=== PATIENT | male | born 1960 | race Caucasian/White ===

== ENCOUNTER 2016-03-20 05:50 | Inpatient (IN) | payer OTHER ==
[~2016-03-20] VITALS: Ht 188 cm; Wt 113.4 kg
[2016-03-20] VITALS (7 sets, daily range): BP systolic 126–156; BP diastolic 74–86
[~2016-03-20 05:50] MED LIST: AMLO10TA PO; ASPI81TA85 PO; BENA40TA2 PO; HYDR25TAB PO; NEXI1CAP4 PO
[2016-03-20] MEDS ORDERED: MANNITOL 25% 12.5 GM/50 ML VIAL (J2150) As Ordered ONE ×2 (07:13→11:44)
[2016-03-20] MEDS ORDERED: FLUORESCEIN 10% (100MG/ML) 5 ML VIAL As Ordered ONE (07:15)
[2016-03-20] MEDS ORDERED: ePHEDrine SULFATE 25 MG/5 ML(5MG/ML) SYRINGE As Ordered ONE (08:17)
[2016-03-20] MEDS ORDERED: dexameTHASONE 4 MG/ML 1ML VIAL (J1100) As Ordered ONE (08:37)
[2016-03-20] MEDS ORDERED: PROPOFOL 200 MG/20 ML VIAL As Ordered ONE ×2 (08:37→12:07)
[2016-03-20] MEDS ORDERED: HYDROmorphone HCL 2 MG/ML 1ML VIAL (J1170) As Ordered ONE (08:37)
[2016-03-20] MEDS ORDERED: MIDAZOLAM INJ 2 MG/2 ML VIAL (J2250) As Ordered ONE (08:37)
[2016-03-20] MEDS ORDERED: LIDOCAINE 2% INJ 100 MG/5 ML SDV (FOR ANES.) As Ordered ONE (08:37)
[2016-03-20] MEDS ORDERED: ROCURONIUM BROMIDE 50 MG/5 ML VIAL As Ordered ONE ×3 (08:37→12:29)
[2016-03-20] MEDS ORDERED: fentaNYL 250 MCG/5 ML INJECTION (J3010) As Ordered ONE (08:37)
[2016-03-20] MEDS ORDERED: ONDANSETRON 4MG/2ML VIAL (J2405) As Ordered ONE ×2 (08:37→12:29)
[2016-03-20] MEDS ORDERED: GLYCOPYRROLATE INJ 0.2 MG/ML 2 ML VIAL As Ordered ONE (08:45)
[2016-03-20] MEDS ORDERED: MANNITOL 25% 12.5 GM/50 ML VIAL (J2150) XX ONE (10:24)
[2016-03-20] MEDS ORDERED: fentaNYL 100 MCG/2 ML INJECTION (J3010) As Ordered ONE (13:21)
[2016-03-20] MEDS: fentaNYL 100 MCG/2 ML INJECTION (J3010) IV PRN ×2 (13:24→13:34)
[2016-03-20 13:34] LABS: MEAN CORPUSCULAR HEMOGLOBIN 32.6 pg (27.0-33.0); MEAN CORPUSCULAR HGB CONC 35.1 g/dl (32.0-36.5); MEAN CORPUSCULAR VOLUME 92.7 fl (80.0-96.0); RED CELL DISTRIBUTION WIDTH 11.9 % (11.5-14.5); WHITE BLOOD COUNT 10.3 K/mm3 (4.0-10.0)
[2016-03-20] MEDS ORDERED: ALBUTEROL SULFATE 2.5 MG/0.5 ML INH NEB SOLN As Ordered ONE (13:48)
[2016-03-20 14:12] LABS: ANION GAP 10 MEQ/L (8-16); BLOOD UREA NITROGEN 16 MG/DL (7-18); CALCIUM LEVEL 8.7 MG/DL (8.5-10.1); CARBON DIOXIDE LEVEL 22 MEQ/L (21-32); CHLORIDE LEVEL 104 MEQ/L (98-107); CREATININE FOR GFR 1.27 MG/DL (0.70-1.30); GLOMERULAR FILTRATION RATE > 60.0 (>56); GLUCOSE, FASTING 139 MG/DL (70-105); POTASSIUM SERUM 4.2 MEQ/L (3.5-5.1); SODIUM LEVEL 136 MEQ/L (136-145)
[2016-03-20] MEDS ORDERED: PERCOCET 5MG/325MG TAB PO PRN (14:15)
[2016-03-20] MEDS ORDERED: LR 1,000 ML IV SCH (14:15)
[2016-03-20] MEDS ORDERED: ONDANSETRON 4MG/2ML VIAL (J2405) IV PRN ×2 (14:15→15:00)
[2016-03-20] MEDS ORDERED: HYDROmorphone HCL 1 MG/ML SYRINGE (J1170) IV PRN (14:15)
[2016-03-20] MEDS ORDERED: ALBUTEROL SULFATE 2.5 MG/0.5 ML INH NEB SOLN NEB SCH (14:15)
[2016-03-20] MEDS ORDERED: ADVAIR DISKUS 250/50 INH PWD INH PRN (15:15)
[2016-03-20] MEDS ORDERED: ALBUTEROL 90 MCG/ACT 8GM HFA INHALER INH PRN (15:15)
[2016-03-20] MEDS: MORPHINE 4 MG/ML 1ML SYRINGE IV PRN ×2 (15:16→18:33)
[2016-03-20] MEDS: ACETAMINOPHEN 650MG ER TAB (TYLENOL ARTHRITIS) PO SCH ×2 (16:23→22:49)
[2016-03-20] MEDS: hydroCHLOROthiazide 25 MG TAB PO SCH (16:24)
[2016-03-20] MEDS: amLODIPine 10 MG TAB PO SCH (16:24)
[2016-03-20] MEDS: KCL 20MEQ IN D5/0.45NS 1000ML 1,000 ML IV SCH (16:26)
[2016-03-20] MEDS: CIPROFLOXACIN 500 MG TAB PO SCH (17:35)
[2016-03-20] MEDS: oxyCODONE 5MG TAB PO PRN (21:01)
--- NOTE | 2016-03-21 00:29 | RO ---
DATE OF PROCEDURE: 03/20/2016 PREPROCEDURE DIAGNOSIS: Right renal neoplasm. POSTPROCEDURE DIAGNOSIS: Right renal neoplasm. PROCEDURE: Robotic-assisted right partial nephrectomy. SURGEON: Reji Morgan MD PRODUCTION CONTROL MANAGER: Malu Talavera ANESTHESIA: General. COMPLICATIONS: None. ESTIMATED BLOOD LOSS: 100 mL. WARM ISCHEMIA TIME: 26 minutes. HISTORY OF THE PRESENT ILLNESS: This is a 55-year-old male patient that has a right renal neoplasm about 3 cm in diameter in the upper pole, posterior part. 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 He has consented for a robotic-assisted right partial nephrectomy. DESCRIPTION OF PROCEDURE: In a patient under general anesthesia in decubital lateral position with the left side down and the right side up, we prepped and draped the patient. We prepped the complete abdomen and right flank. We placed a Galan catheter to drain the bladder, a 16-Burmese Galan catheter, inflated the balloon to 10 mL. We placed an orogastric tube to drain the gastric content. We then proceeded to do a transverse incision about 2 cm in length supraumbilically about 4 cm above the umbilicus and 2 cm more to the lateral. Through this incision, we opened up peritoneal cavity and placed a 12 mm balloon trocar. We inflated the balloon to 40 mL and through this trocar, we insufflated the abdomen with CO2 at a maximum pressure of 15 at high flow. We then proceeded to place a 30 degree down 10 mm robotic camera, an optic. With a handheld robotic camera surgical assistant certified, we placed the other trocars, 8 mm metallic trocar subcostally 2 cm away from the subcostal margin in the midclavicular line, in the midline and epigastrium a 5 mm VersaStep to retract the liver with an Allis clamp attached to the lateral abdominal wall and below the umbilicus, about 6 cm away from umbilicus in the midline, a 12 mm VersaStep. We placed another 8 mm metallic trocar at the level of the right iliac fossa in the midclavicular line and 7 cm away from this one in anterior axillary line, we placed a third arm, 8 mm metallic trocar. We then proceeded to use in the third arm a ProGrasp, in the left arm in the lower iliac fossa monopolar scissors, in the right arm monopolar PK. We then docked the robot. We proceeded to actually dissect the line of Toldt and retract the ascending colon toward the midline. We then proceeded to identify the lower pole of the kidney and defatted the kidney completely out of perirenal fat, mobilizing the kidney out lower pole and posterior part of the kidney as well as lateral attachments. We then proceeded to identify the lower polar artery and ureter. With the third arm, we retracted the lower pole and dissected the lower pole artery. We identified the renal vein, dissected the renal vein. We then proceeded to dissect the upper pole. We identified the upper pole artery, and we also dissected the upper pole. We then flipped the kidney completely toward the midline, and we could actually see the posterior 3 cm mass coming off from the upper pole. At that moment in time, we passed Mannitol 12.5 grams IV and then introduced an ultrasound PK intraoperative ultrasound to identify the vessels around the mass and the mass. It was a solid cystic mass. At that moment in time, we actually decided to pass 2 mL of indocyanine green for a total of 5 grams of indocyanine IV. We could visualize that when we clamped the upper pole, we could actually only reduce the perfusion of the upper pole but not the posterior pole. For this reason, we decided to actually put bulldog clamps in both arteries and none in the renal vein. At that moment in time with scissors and bipolar PK, we resected the upper pole as well as the upper pole posterior renal neoplasm. We then proceeded to actually use Vicryl #3-0 to do a running stitch to actually secure hemostasis and then a 2-0 V-Loc to actually run and approximate the parenchyma to parenchyma of the upper pole. Once the anastomosis was done, we took out the bulldogs. We could see there was no bleeding vessels. At that moment in time, we placed Siobhan on top of the renal fossa resection as well as the posterior part of the psoas muscle, posterior part of the upper pole area. We then proceeded to secure hemostasis. There were no bleeding vessels. We reduced the pneumoperitoneum to 10 and there were no bleeding vessels. At that moment in time, we extracted all needles and the bulldogs. We then proceeded to undock by pulling out the third arm and passing a TAMIKA drain to the posterior part of the kidney. We undocked the third arm. We took all the instruments out and before this, we placed the mass into an Endo Catch bag and the perirenal fat also into an Endo Catch bag 10 mm in size. We then proceeded to undock the robot and took all the trocars out. We extracted the mass through the optic incision site. This was sent as two specimens, (1) the perirenal fat and (2) the right renal neoplasm. We then proceeded to actually count the needles. There was one needle missing. For this reason, we actually replaced the optic port and two metallic trocars and docked the robot again. We proceeded to actually inspect the cavity, and we could see that one of the 3-0 V-Locs was still attached in the renal raphe. For this reason, we cut the needle and then extracted the needle out and the count was complete. At that moment in time, we verified that hemostasis was very well performed. There were no bleeding vessels. We took all the instruments out, undocked the robot and took all the trocars out and then started closing the trocar incision sites. We closed the optic port incision site in two layers with a #0 Prolene, separate stitches and the second layer with Vicryl #0 and a UR6 needle in separate stitches also. We then closed the port sites with subcuticular stitches, #4-0 Monocryls, and nylon #3-0 to actually stitch the drain to the skin. We then covered the wound with Steri-Strips, 2 x 2's and Tegaderm. PLAN: The patient will pass to recovery and then to the floor. Once he is taking a regular diet and ambulating very well, he will be discharged home. There were no complications during surgery.
[2016-03-21] MEDS: KCL 20MEQ IN D5/0.45NS 1000ML 1,000 ML IV SCH ×3 (01:03→15:00)
[2016-03-21 02:00] VITALS: BP 129/83
[2016-03-21] MEDS: CIPROFLOXACIN 500 MG TAB PO SCH ×2 (05:55→18:00)
[2016-03-21] MEDS: ACETAMINOPHEN 650MG ER TAB (TYLENOL ARTHRITIS) PO SCH ×3 (05:55→20:50)
[2016-03-21 06:00] VITALS: BP 138/88
[2016-03-21 06:52] LABS: MEAN CORPUSCULAR HEMOGLOBIN 31.7 pg (27.0-33.0); MEAN CORPUSCULAR HGB CONC 33.5 g/dl (32.0-36.5); MEAN CORPUSCULAR VOLUME 94.7 fl (80.0-96.0); RED CELL DISTRIBUTION WIDTH 12.5 % (11.5-14.5); WHITE BLOOD COUNT 12.1 K/mm3 (4.0-10.0)
[2016-03-21 06:55] LABS: ANION GAP 7 MEQ/L (8-16); BLOOD UREA NITROGEN 13 MG/DL (7-18); CALCIUM LEVEL 8.9 MG/DL (8.5-10.1); CARBON DIOXIDE LEVEL 29 MEQ/L (21-32); CHLORIDE LEVEL 104 MEQ/L (98-107); CREATININE FOR GFR 1.24 MG/DL (0.70-1.30); GLOMERULAR FILTRATION RATE > 60.0 (>56); GLUCOSE, FASTING 129 MG/DL (70-105); POTASSIUM SERUM 4.3 MEQ/L (3.5-5.1); SODIUM LEVEL 140 MEQ/L (136-145)
[2016-03-21] MEDS: PANTOPRAZOLE 40MG INJ (PROTONIX) (C9113) IV SCH (07:55)
[2016-03-21] MEDS: oxyCODONE 5MG TAB PO PRN ×4 (07:55→20:51)
[2016-03-21] MEDS: amLODIPine 10 MG TAB PO SCH (07:55)
[2016-03-21] MEDS: hydroCHLOROthiazide 25 MG TAB PO SCH (07:56)
[2016-03-21 10:00] VITALS: BP 136/80
[2016-03-21 14:00] VITALS: BP 142/84
[2016-03-21 17:50] LABS: SOURCE, BODY FLUID CREATININE OTHER
[2016-03-21 22:00] VITALS: BP 170/82
[2016-03-22] MEDS: KCL 20MEQ IN D5/0.45NS 1000ML 1,000 ML IV SCH (02:39)
[2016-03-22] MEDS: oxyCODONE 5MG TAB PO PRN ×3 (03:28→11:58)
[2016-03-22 06:00] VITALS: BP 155/63
[2016-03-22] MEDS: ACETAMINOPHEN 650MG ER TAB (TYLENOL ARTHRITIS) PO SCH (06:42)
[2016-03-22] MEDS: CIPROFLOXACIN 500 MG TAB PO SCH (06:42)
[2016-03-22] MEDS: hydroCHLOROthiazide 25 MG TAB PO SCH (08:06)
[2016-03-22 08:07] VITALS: BP 153/96
[2016-03-22] MEDS: amLODIPine 10 MG TAB PO SCH (08:07)
[2016-03-22] MEDS: PANTOPRAZOLE 40MG INJ (PROTONIX) (C9113) IV SCH (08:08)
[2016-03-22] MEDS ORDERED: OXYC10TA12 PO (10:26)
[2016-03-22] MEDS ORDERED: CIPR500T3 PO (10:26)
--- NOTE | 2016-03-22 20:49 | DSES ---
DATE OF ADMISSION: 03/20/2016 DATE OF DISCHARGE: 03/22/2016 PREOPERATIVE DIAGNOSIS: Right renal neoplasm. POSTOPERATIVE DIAGNOSIS: Right renal calcified cyst. SURGERY PERFORMED: Robotic-assisted right partial nephrectomy. ADMITTING DIAGNOSIS: Right renal neoplasm. DISCHARGE DIAGNOSIS: Right renal cortical calcified cyst. COMPLICATIONS: None. ADMITTING SURGEON: Reji Morgan MD DISCHARGING SURGEON: Reji Morgan MD SURGERY PERFORMED BY: Reji Morgan MD HISTORY OF PRESENT ILLNESS: This is a 55-year-old male patient that had an incidental finding of a right renal neoplasm with calcifications inside. For this reason, he consented for a robotic-assisted right partial nephrectomy. This procedure was carried out on 03/20/2016. After this procedure, he was admitted to the hospital. HOSPITALIZATION COURSE: The patient did very well and by postoperative day #1 he was tolerating a regular diet, his pain was under control with oral pain medication and intravenous (IV) pain medication, he was passing gas, urine output was adequate with a Galan catheter. For this reason, we discontinued the Galan catheter on postoperative day #1. His Joseluis-Owens (TAMIKA) output was around 30- 40 mL per shift. On postoperative day #2, we sent a TAMIKA creatinine level and the TAMIKA creatinine was 1.0, same as the serum creatinine. For this reason, we discontinued the TAMIKA drain. We discontinued the Galan catheter and the patient also urinated very well for 24 hours. He was passing gas, he was tolerating a regular diet, pain was now controlled only with oral pain medication, oxycodone 10 mg every 4 hours. The patient requested to go home and we agreed upon this. The patient has voided, is passing flatus, he has no abdominal pain, he is ambulating very well, and tolerating a regular diet. For this reason, he will be going home with the following indications: No heavy weight lifting above 20 pounds for 1 month. He has to be off work for 1 week. He will have ciprofloxacin 500 mg one tablet by mouth twice a day for 10 days, oxycodone 10 mg every 6 hours as needed for pain. He will increase water intake for about 2 liters a day. He will followup at [facility] in 2 weeks. There were no complications of his surgery. FERNANDO
== END 2016-03-22 12:10 | disposition home or self-care (01) | DRG 661 ==
LOC: M OR 05:50 → M MS5PR 14:45
PROVIDERS: ADMIT Urology; ATTEND Urology
PROC: 0TB04ZZ Excision of Right Kidney, Percutaneous Endoscopic Approach (ICD-10-PCS; principal; 2016-03-20 07:30)
DX: N28.1 Cyst of kidney, acquired (principal); J44.9 Chronic obstructive pulmonary disease, unspecified; G47.30 Sleep apnea, unspecified; I10 Essential (primary) hypertension; M19.90 Unspecified osteoarthritis, unspecified site; Z79.82 Long term (current) use of aspirin; Z79.899 Other long term (current) drug therapy; Z87.891 Personal history of nicotine dependence

== ENCOUNTER → 2016-05-04 | Outpatient (CLI) | payer OTHER ==
[~2016-05-04] MED LIST changes: +CIPR500T3 PO; +OXYC10TA12 PO
[2016-05-04 13:34] LABS: MEAN CORPUSCULAR HGB CONC 35.1 g/dl (32.0-36.5); MEAN CORPUSCULAR VOLUME 91.3 fl (80.0-96.0); RED CELL DISTRIBUTION WIDTH 12.2 % (11.5-14.5); WHITE BLOOD COUNT 5.9 K/mm3 (4.0-10.0)
[2016-05-04 13:51] LABS: BLOOD UREA NITROGEN 14 MG/DL (7-18); CARBON DIOXIDE LEVEL 27 MEQ/L (21-32); CHLORIDE LEVEL 103 MEQ/L (98-107); CREATININE FOR GFR 0.97 MG/DL (0.70-1.30); GLOMERULAR FILTRATION RATE > 60.0 (>56); GLUCOSE, FASTING 104 MG/DL (70-105); POTASSIUM SERUM 4.7 MEQ/L (3.5-5.1); SODIUM LEVEL 139 MEQ/L (136-145)
[2016-05-04 13:52] LABS: ANION GAP 9 MEQ/L (8-16); CALCIUM LEVEL 9.3 MG/DL (8.5-10.1)
== END ==
LOC: M SMT 08:44
PROVIDERS: ATTEND Nurse Practitioner Women's Health
DX: N28.9 Disorder of kidney and ureter, unspecified (principal)